=== PATIENT | male | born 1985 | race Caucasian/White ===

== ENCOUNTER 2024-04-09 15:44 | Emergency (ER) | payer MEDICAID ==
[~2024-04-09] VITALS: Ht 172.7 cm; Wt 90.7 kg
[2024-04-09 16:00] VITALS: BP 122/70; PULSE 64; RESP 18; TEMP 97.3; O2SAT 100
[2024-04-09] MEDS: KETOROLAC 60 MG/2 ML VIAL IM ONE (16:28)
[2024-04-09] MEDS: PROCHLORPERAZINE 10 MG/2 ML VIAL IM ONE (16:29)
[2024-04-09] MEDS ORDERED: NAPR-1704 PO (17:40)
[2024-04-09] MEDS ORDERED: TRAM-748 PO ×2 (17:41→17:43)
[2024-04-09 18:00] VITALS: BP 128/68; PULSE 61; RESP 16; TEMP 98; O2SAT 99
== END 2024-04-09 18:00 | disposition home or self-care (01) ==
LOC: MED 15:44
DX: R51.9 Headache, unspecified (principal); Z79.899 Other long term (current) drug therapy
CPT/HCPCS: 70450; 96372; 99285; J0780; J1885